=== PATIENT | female | born 1995 | race Caucasian/White ===

== ENCOUNTER 2017-08-13 01:46 | Emergency (ER) | payer SELFPAY ==
[~2017-08-13] VITALS: Ht 149.9 cm; Wt 56.7 kg
--- NOTE | 2017-08-13 01:50 | NUR ---
PT TO ER BED 14. BIB RA FOR TELLING HER BOYFRIEND SHE WAS +SI/-HI, PT STATES SHE IS -SI. NOTED SUPERFICIAL CUTS TO L FA. PT PLACED ON UNIVERSITY ADMINISTRATOR. VSS/RESP EVEN UNLABORED/NAD NOTED/SKIN WARM AND DRY/DENIES N-V-D/AFEBRILE/AOX4. AWAITING MD GONZALEZ.
--- NOTE | 2017-08-13 02:05 | NUR ---
URINE SPECIMEN OBTAINED AND SENT TO LAB.
--- NOTE | 2017-08-13 02:13 | NUR ---
LAB AT BEDSIDE FOR DRAW.
[2017-08-13 02:28] LABS: BASOPHILS % (AUTO) 0.5 % (0.0-2.0); EOSINOPHILS % (AUTO) 1.7 % (0.0-6.0); HEMATOCRIT 39 % (33-45); HEMOGLOBIN 13.8 g/dL (11.5-14.8); LYMPHOCYTES # (AUTO) 1.7 /CMM (0.8-4.8); LYMPHOCYTES % (AUTO) 29.6 % (20.0-44.0); MEAN CORPUSCULAR HGB CONC 35 g/dl (31.0-36.0); MEAN CORPUSCULAR VOLUME 95 fL (82-100); MONOCYTES # (AUTO) 0.4 /CMM (0.1-1.30); MONOCYTES % (AUTO) 7.5 % (2.0-12.0); NEUTROPHILS # (AUTO) 3.5 /CMM (1.8-8.9); NEUTROPHILS % (AUTO) 60.7 % (43.0-81.0); PLATELET COUNT (AUTO) 293 /CMM (150-450); RDW COEFFICIENT OF VARIATION 12.1 (11.5-15.0); WHITE BLOOD COUNT (AUTO) 5.8 K/uL (4.3-11.0)
[2017-08-13 02:29] LABS: APPEARANCE,URINE CLEAR (CLEAR); BILIRUBIN,URINE NEGATIVE (NEGATIVE); BLOOD, URINE NEGATIVE Ery/uL (NEGATIVE); COLOR,URINE YELLOW (YELLOW); KETONES,URINE NEGATIVE (NEGATIVE); LEUKOCYTE ESTERASE ,URINE NEGATIVE (NEGATIVE); NITRITE, URINE NEGATIVE (NEGATIVE); PROTEIN,URINE NEGATIVE (NEGATIVE); UGLUCOSE NEGATIVE (NEGATIVE); UROBILINOGEN,URINE 0.2 EU/dL (0.2)
[2017-08-13 02:37] LABS: CREATININE 0.8 mg/dL (0.6-1.3); POTASSIUM 3.4 mmol/L (3.5-5.1)
[2017-08-13 02:49] LABS: ALBUMIN 4.3 g/dL (3.4-5.0); BILIRUBIN,DIRECT 0.1 mg/dL (0.0-0.2); BILIRUBIN,TOTAL 0.2 mg/dL (0.2-1.0); SALICYLATE 3.7 mg/dL (2.8-20.0); TOTAL PROTEIN, SERUM 7.1 g/dL (6.4-8.2)
[2017-08-13] MEDS ORDERED: POTASSIUM CHLORIDE 20 MEQ TAB.PRT.SR PO ONE ×2 (03:30→04:59)
--- NOTE | 2017-08-13 04:54 | NUR ---
PT SPEAKING WITH FRIEND AT BEDSIDE, VSS. RN TO CONTINUE MONITORING PROVIDING SAFETY/COMFORT MEASURES.
--- NOTE | 2017-08-13 07:03 | NUR ---
PT RESTING QUIETLY, AROUSES EASILY TO VOICE. VSS. RN TO CONTINUE MONITORING PROVIDING SAFETY/COMFORT MEASURES.
--- NOTE | 2017-08-13 07:19 | NUR ---
REPORT GIVEN TO MINI PERALTA FOR EMILY.
--- NOTE | 2017-08-13 08:30 | NUR ---
PROVIDED PT WITH WATER REQUESTED. VSS. WILL MONITOR.
--- NOTE | 2017-08-13 10:15 | NUR ---
PT'S MOM AT .
--- NOTE | 2017-08-13 10:31 | NUR ---
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
--- NOTE | 2017-08-13 11:45 | NUR ---
OSIRIS AT BEDSIDE FOR EVAL
--- NOTE | 2017-08-13 12:30 | NUR ---
RPatient is resting comfortably in bed with eyes closed. Easily aroused. VSS
--- NOTE | 2017-08-13 13:15 | NUR ---
Patient discharged to home in stable condition. Written and verbal after care instructions given. Patient verbalizes understanding of instruction.
[2017-08-13 13:16] VITALS: BP 116/68
== END 2017-08-13 13:17 | disposition home or self-care (01) ==
LOC: ER 01:47
DX: R45.851 Suicidal ideations (principal); E87.6 Hypokalemia; F10.10 Alcohol abuse, uncomplicated; F15.10 Other stimulant abuse, uncomplicated; F32.9 Major depressive disorder, single episode, unspecified; Z88.0 Allergy status to penicillin; Z88.2 Allergy status to sulfonamides
CPT/HCPCS: 36415; 80048; 80076; 80305; 80329; 81001; 84703; 85025; 99284; A4606; G0480 ×3; Z7610; 81000-TC